=== PATIENT | male | born 1955 | race Caucasian/White ===

== ENCOUNTER → 2017-08-20 | Outpatient (CLI) | payer MEDICARE, OTHER ==
[~2017-08-20] MED LIST: ASPI-496 PO; GABA300C10 PO; METO25TA35 PO; OMNIPAQUE 350 MG/ML, 100ML BOTTLE ONE; ROSU20TA PO
== END | disposition home or self-care (01) ==
LOC: CFH 12:03
PROVIDERS: ATTEND Internal Medicine Gastroenterology
DX: C15.9 Malignant neoplasm of esophagus, unspecified (principal); I70.0 Atherosclerosis of aorta; E04.9 Nontoxic goiter, unspecified; N20.0 Calculus of kidney; K22.8 Other specified diseases of esophagus; N28.1 Cyst of kidney, acquired
CPT/HCPCS: 71260; 74160; Q9967

== ENCOUNTER 2017-09-05 10:49 | Day surgery (SDC) | payer MEDICARE, OTHER ==
[~2017-09-05] VITALS: Ht 172.7 cm; Wt 75.0 kg
[~2017-09-05 10:49] MED LIST changes: +DIPH25CA61 PO; +HYDR12.58 PO; +LOSA50TA6 PO; +OMEG1CAP6 PO; +OMEP40CA6 PO; -OMNIPAQUE 350 MG/ML, 100ML BOTTLE ONE
[2017-09-05] MEDS ORDERED: LACTATED RINGERS 1,000 ML IV SCH (11:30)
[2017-09-05] MEDS ORDERED: CHLORHEXIDINE 15 ML BOTTLE MM SCH (12:30)
[2017-09-05] MEDS ORDERED: PROPOFOL 10 MG/ML, 20ML ONE (13:10)
== END 2017-09-05 15:40 ==
LOC: OUT 10:49
PROVIDERS: ATTEND Internal Medicine Gastroenterology
DX: C15.9 Malignant neoplasm of esophagus, unspecified (principal); K29.70 Gastritis, unspecified, without bleeding; I25.10 Atherosclerotic heart disease of native coronary artery without angina pectoris; G47.33 Obstructive sleep apnea (adult) (pediatric); Z79.82 Long term (current) use of aspirin; Z79.899 Other long term (current) drug therapy; Z95.1 Presence of aortocoronary bypass graft; Z98.890 Other specified postprocedural states; Z98.52 Vasectomy status
CPT/HCPCS: 43237; J2704; J7120

== ENCOUNTER 2017-09-19 11:21 | Day surgery (SDC) | payer MEDICARE, OTHER ==
[2017-09-17 10:59] VITALS: BP 156/95
[~2017-09-19] VITALS: Ht 172.7 cm; Wt 78.1 kg
[2017-09-19] MEDS ORDERED: LACTATED RINGERS 1,000 ML IV SCH (12:04)
[2017-09-19] MEDS ORDERED: HEPARIN 1,000 UNITS/ML, 10ML ONE (14:33)
[2017-09-19] MEDS ORDERED: BUPIVACAINE/PF-EPI 0.5% 1:200K ONE (14:33)
[2017-09-19] MEDS ORDERED: MIDAZOLAM 1 MG/ML, 2ML ONE ×2 (14:47)
[2017-09-19] MEDS ORDERED: FENTANYL PF 100 MCG/2ML ONE (14:47)
[2017-09-19] MEDS ORDERED: LIDOCAINE-MPF 2% ,5ML ONE (14:49)
[2017-09-19] MEDS ORDERED: LIDOCAINE GEL 2%, 5ML ONE (14:49)
[2017-09-19] MEDS ORDERED: PROPOFOL 10 MG/ML, 20ML ONE (14:58)
[2017-09-19] MEDS ORDERED: CEFAZOLIN 1,000 MG ONE ×2 (15:03)
[2017-09-19] MEDS ORDERED: BUPIVACAINE/PF-EPI 0.5% 1:200K INFIL ONE (15:12)
[2017-09-19] MEDS ORDERED: HEPARIN 1,000 UNITS/ML, 10ML IV ONE (15:13)
[2017-09-19] MEDS ORDERED: LABETALOL 5MG/ML, 20ML ONE (15:43)
[2017-09-19] MEDS ORDERED: HYDROmorphone 2 MG/ML, 1ML IV PRN (16:00)
[2017-09-19] MEDS ORDERED: ONDANSETRON 2MG/ML, 2ML IVPush PRN (16:00)
[2017-09-19] MEDS ORDERED: LABETALOL 5MG/ML, 20ML IV PRN ×2 (16:00)
[2017-09-19] MEDS ORDERED: MEPERIDINE/PF 25MG/0.5ML IVPush PRN (16:00)
[2017-09-19] MEDS ORDERED: OXYcodone 5 MG/5 ML ORAL.SOL UDC PO PRN (16:00)
[2017-09-19] MEDS ORDERED: MIDAZOLAM 1 MG/ML, 2ML IV PRN (16:00)
[2017-09-19] MEDS ORDERED: FENTANYL PF 100 MCG/2ML IV PRN (16:00)
[2017-09-19] MEDS ORDERED: IBUPROFEN 600 MG TABLET PO ONE (16:30)
== END 2017-09-19 17:20 ==
LOC: OUT 11:21
PROVIDERS: ATTEND Surgery
DX: C15.5 Malignant neoplasm of lower third of esophagus (principal); E78.5 Hyperlipidemia, unspecified; I10 Essential (primary) hypertension; G47.30 Sleep apnea, unspecified; Z85.46 Personal history of malignant neoplasm of prostate; Z98.890 Other specified postprocedural states; Z98.52 Vasectomy status; Z95.1 Presence of aortocoronary bypass graft; Z79.82 Long term (current) use of aspirin; Z79.899 Other long term (current) drug therapy; Z87.442 Personal history of urinary calculi
CPT/HCPCS: 36561; 71045; 77001; C1788; J0690; J1644; J2250; J2704; J3010; J3490

== ENCOUNTER → 2017-11-13 | Outpatient (CLI) | payer MEDICARE, OTHER ==
[~2017-11-13] MED LIST changes: -LOSA50TA6 PO; +LOSA50TA7 PO; +OMNIPAQUE 350 MG/ML, 100ML BOTTLE ONE
== END | disposition home or self-care (01) ==
LOC: RAD 13:00
PROVIDERS: ATTEND Internal Medicine Hematology & Oncology
DX: K22.8 Other specified diseases of esophagus (principal); K40.90 Unilateral inguinal hernia, without obstruction or gangrene, not specified as recurrent; N20.0 Calculus of kidney; N28.1 Cyst of kidney, acquired; I51.7 Cardiomegaly; C15.5 Malignant neoplasm of lower third of esophagus
CPT/HCPCS: 71260; 74177; Q9967

== ENCOUNTER → 2017-11-15 | Outpatient (CLI) | payer MEDICARE, OTHER ==
[~2017-11-15] MED LIST changes: -OMNIPAQUE 350 MG/ML, 100ML BOTTLE ONE
== END | disposition home or self-care (01) ==
LOC: ROC 07:34
PROVIDERS: ATTEND Radiology Radiation Oncology
DX: C15.5 Malignant neoplasm of lower third of esophagus (principal)
CPT/HCPCS: G0463

== ENCOUNTER → 2017-12-30 | Outpatient (CLI) | payer MEDICARE, OTHER | END | disposition home or self-care (01) | LOC: RAD 09:56 | PROVIDERS: ATTEND Family Medicine | DX: Z01.818 Encounter for other preprocedural examination (principal); I44.7 Left bundle-branch block, unspecified; I21.9 Acute myocardial infarction, unspecified; Z99.89 Dependence on other enabling machines and devices; I25.10 Atherosclerotic heart disease of native coronary artery without angina pectoris; C15.9 Malignant neoplasm of esophagus, unspecified | CPT/HCPCS: 71046; 93005 ==

== ENCOUNTER → 2019-01-05 | Outpatient (CLI) | payer MEDICARE, OTHER ==
[~2019-01-05] MED LIST changes: -HYDR12.58 PO; +HYDROCHLOROTH12.5 MG PO; +LOSA50TA14 PO; -LOSA50TA7 PO; +OMEP40CA42 PO; -OMEP40CA6 PO; +OMNIPAQUE 350 MG/ML, 100ML BOTTLE ONE; -ROSU20TA PO; +ROSU20TA2 PO
== END | disposition home or self-care (01) ==
LOC: CFH 11:14
PROVIDERS: ATTEND Internal Medicine Hematology & Oncology
DX: C15.5 Malignant neoplasm of lower third of esophagus (principal); N28.1 Cyst of kidney, acquired; N20.0 Calculus of kidney; J98.11 Atelectasis; Z85.46 Personal history of malignant neoplasm of prostate
CPT/HCPCS: 71260; 74177; Q9967

== ENCOUNTER → 2019-06-29 | Outpatient (CLI) | payer MEDICARE, OTHER | END | disposition home or self-care (01) | LOC: CFH 10:58 | PROVIDERS: ATTEND Internal Medicine Hematology & Oncology | DX: C15.5 Malignant neoplasm of lower third of esophagus (principal); N28.1 Cyst of kidney, acquired; D72.819 Decreased white blood cell count, unspecified | CPT/HCPCS: 71260; 74177; Q9967 ==

== ENCOUNTER → 2020-01-07 | Outpatient (CLI) | payer MEDICARE, OTHER | END | disposition home or self-care (01) | LOC: CFH 08:53 | PROVIDERS: ATTEND Internal Medicine Hematology & Oncology | DX: C15.5 Malignant neoplasm of lower third of esophagus (principal); J98.4 Other disorders of lung; K43.6 Other and unspecified ventral hernia with obstruction, without gangrene; I70.0 Atherosclerosis of aorta | CPT/HCPCS: 71260; 74177; Q9967 ==

== ENCOUNTER 2020-02-03 07:30 | Day surgery (SDC) | payer MEDICARE, OTHER ==
[~2020-02-03] VITALS: Ht 172.7 cm; Wt 69.0 kg
[~2020-02-03 07:30] MED LIST changes: -OMNIPAQUE 350 MG/ML, 100ML BOTTLE ONE
[2020-02-03 08:56] VITALS: BP 105/72
[2020-02-03] MEDS ORDERED: SODIUM CHLORIDE 0.9% 1,000 ML IV SCH (09:00)
[2020-02-03] MEDS ORDERED: FLUMAZENIL 0.1 MG/1 ML, 5ML ONE (09:06)
[2020-02-03] MEDS ORDERED: NALOXONE 1 MG/ML, 2ML ONE (09:06)
[2020-02-03] MEDS ORDERED: MIDAZOLAM 1 MG/ML, 5ML ONE (09:06)
[2020-02-03] MEDS ORDERED: FENTANYL PF 100 MCG/2ML ONE ×2 (09:06)
[2020-02-03] MEDS ORDERED: LIDOCAINE 1%, 10ML ONE (09:07)
== END 2020-02-03 10:30 | disposition home or self-care (01) ==
LOC: OUT 07:30 → EDSTATUS 09:30 → OUT 10:30
PROVIDERS: ATTEND Internal Medicine Hematology & Oncology
DX: R93.89 Abnormal findings on diagnostic imaging of other specified body structures (principal); C15.5 Malignant neoplasm of lower third of esophagus; G60.0 Hereditary motor and sensory neuropathy; I10 Essential (primary) hypertension; I25.10 Atherosclerotic heart disease of native coronary artery without angina pectoris; Z79.899 Other long term (current) drug therapy; Z85.46 Personal history of malignant neoplasm of prostate; Z95.5 Presence of coronary angioplasty implant and graft
CPT/HCPCS: 20206; 76942; J3010; J7030; J2250; J2310

== ENCOUNTER → 2020-02-10 | Outpatient (CLI) | payer MEDICARE, OTHER ==
[~2020-02-10] MED LIST changes: +OMNIPAQUE 350 MG/ML, 75ML BOTTLE ONE
[2020-02-10 16:29] LABS: CREATININE 1.09 mg/dL (0.7-1.3)
== END | disposition home or self-care (01) ==
LOC: RAD 15:37
PROVIDERS: ATTEND Internal Medicine
DX: R91.8 Other nonspecific abnormal finding of lung field (principal)
CPT/HCPCS: 36415; 71260; 82565; Q9967

== ENCOUNTER → 2020-02-22 | Outpatient (CLI) | payer MEDICARE, OTHER ==
[~2020-02-22] MED LIST changes: +LOSA25TA25 PO; +MULT-449 PO; -OMNIPAQUE 350 MG/ML, 75ML BOTTLE ONE; +TRAZ50TA66 PO
[2020-02-22 11:22] LABS: ALBUMIN 3.5 g/dL (3.4-5.0); ANION GAP 3 mmol/L (5-15); CALCIUM 9.8 mg/dL (8.5-10.1); CHLORIDE 107 mmol/L (98-107)
[2020-02-22 11:24] LABS: ALANINE AMINOTRANSFERASE 61 U/L (12-78); ALKALINE PHOSPHATASE 97 U/L (45-117); BILIRUBIN,TOTAL 0.4 mg/dL (0.2-1.0); CREATININE 0.93 mg/dL (0.7-1.3); TOTAL PROTEIN 6.8 g/dL (6.4-8.2)
== END | disposition home or self-care (01) ==
LOC: STAR 09:44
PROVIDERS: ATTEND Internal Medicine
DX: Z01.818 Encounter for other preprocedural examination (principal); R91.8 Other nonspecific abnormal finding of lung field; Z20.828 Contact with and (suspected) exposure to other viral communicable diseases
CPT/HCPCS: 80053; 87635; 93005

== ENCOUNTER 2020-02-26 08:28 | Day surgery (SDC) | payer MEDICARE, OTHER ==
[~2020-02-26] VITALS: Ht 172.7 cm; Wt 70.1 kg
[2020-02-26 09:07] VITALS: BP 107/70
[2020-02-26] MEDS ORDERED: CHLORHEXIDINE 15 ML UDC MM ONE (09:30)
[2020-02-26] MEDS ORDERED: LACTATED RINGERS 1,000 ML IV SCH (10:00)
[2020-02-26] MEDS ORDERED: ONDANSETRON 2MG/ML, 2ML ONE (11:54)
[2020-02-26] MEDS ORDERED: EPHEDRINE 50 MG/ML, 1ML ONE (11:54)
[2020-02-26] MEDS ORDERED: DEXAMETHASONE 4 MG/ML, 1ML ONE (11:54)
[2020-02-26] MEDS ORDERED: PHENYLEPHRINE 10 MG/ML ONE (11:54)
[2020-02-26] MEDS ORDERED: PROPOFOL 10 MG/ML, 20ML ONE (11:54)
[2020-02-26] MEDS ORDERED: MIDAZOLAM 1 MG/ML, 2ML ONE (11:54)
[2020-02-26] MEDS ORDERED: REMIFENTANIL 2 MG ONE (12:15)
[2020-02-26] MEDS ORDERED: PROMETHAZINE 25 MG/ML, 1ML IV PRN (12:30)
[2020-02-26] MEDS ORDERED: ACETAMINOPHEN 325 MG TABLET PO PRN (12:30)
[2020-02-26] MEDS ORDERED: KETOROLAC 30 MG/1 ML IV PRN (12:30)
[2020-02-26] MEDS ORDERED: HYDROmorphone 1 MG/ML, 1ML INJ IVPush PRN (12:30)
[2020-02-26] MEDS ORDERED: hydrALAzine 20 MG/ML, 1ML IV PRN (12:30)
[2020-02-26] MEDS ORDERED: OXYcodone 5 MG/5 ML ORAL.SOL UDC PO PRN (12:30)
[2020-02-26] MEDS ORDERED: FENTANYL PF 100 MCG/2ML IV PRN (12:30)
[2020-02-26] MEDS ORDERED: ALBUTEROL SULFATE 2.5 MG/3 ML NPPB PRN (12:30)
[2020-02-26] MEDS ORDERED: DIAZEPAM 5 MG/ML, 2ML IVPush PRN (12:30)
[2020-02-26] MEDS ORDERED: LABETALOL 5MG/ML, 20ML IV PRN (12:30)
[2020-02-26] MEDS ORDERED: MEPERIDINE/PF 25MG/0.5ML IVPush PRN (12:30)
== END 2020-02-26 15:00 | disposition home or self-care (01) ==
LOC: OUT 08:28
PROVIDERS: ATTEND Internal Medicine
DX: R91.8 Other nonspecific abnormal finding of lung field (principal); G47.33 Obstructive sleep apnea (adult) (pediatric); G60.0 Hereditary motor and sensory neuropathy; I10 Essential (primary) hypertension; I25.10 Atherosclerotic heart disease of native coronary artery without angina pectoris; C16.0 Malignant neoplasm of cardia; Z79.82 Long term (current) use of aspirin; Z79.899 Other long term (current) drug therapy; Z85.46 Personal history of malignant neoplasm of prostate; Z92.21 Personal history of antineoplastic chemotherapy; Z92.3 Personal history of irradiation; Z95.1 Presence of aortocoronary bypass graft
CPT/HCPCS: 31652; 88172; 88173; 88177; 88305; J1100; J2250; J2370; J2405; J2704; J3010; J7120; 31629

== ENCOUNTER → 2020-06-07 | Outpatient (CLI) | payer MEDICARE, OTHER | END | disposition home or self-care (01) | LOC: CFH 11:57 | PROVIDERS: ATTEND Internal Medicine Hematology & Oncology | DX: Z51.11 Encounter for antineoplastic chemotherapy (principal); C15.5 Malignant neoplasm of lower third of esophagus; R22.1 Localized swelling, mass and lump, neck; I82.C11 Acute embolism and thrombosis of right internal jugular vein; D70.8 Other neutropenia; D70.1 Agranulocytosis secondary to cancer chemotherapy; Z85.46 Personal history of malignant neoplasm of prostate; Z79.899 Other long term (current) drug therapy | CPT/HCPCS: 76536 ==

== ENCOUNTER 2020-06-17 10:40 | Day surgery (SDC) | payer MEDICARE, OTHER ==
[2020-06-14 13:03] LABS: ALBUMIN 3.4 g/dL (3.4-5.0); ANION GAP 3 mmol/L (5-15); CALCIUM 9.5 mg/dL (8.5-10.1); CHLORIDE 106 mmol/L (98-107)
[2020-06-14 13:07] LABS: ALANINE AMINOTRANSFERASE 29 U/L (12-78); ALKALINE PHOSPHATASE 101 U/L (45-117); BILIRUBIN,TOTAL 0.4 mg/dL (0.2-1.0); CREATININE 0.98 mg/dL (0.7-1.3); TOTAL PROTEIN 6.6 g/dL (6.4-8.2)
[~2020-06-17] VITALS: Ht 172.7 cm; Wt 71.5 kg
[~2020-06-17 10:40] MED LIST changes: +APIX5TAB PO; +FINA1TAB16 PO; +METO-93 PO; +REMIFENTANIL 1 MG ONE
[2020-06-17] MEDS ORDERED: HYDROCHLOROTH12.5 MG PO (11:06)
[2020-06-17 11:11] VITALS: BP 121/78
[2020-06-17] MEDS ORDERED: CHLORHEXIDINE 15 ML UDC PO ONE (11:30)
[2020-06-17] MEDS ORDERED: LACTATED RINGERS 1,000 ML IV SCH (11:30)
[2020-06-17] MEDS ORDERED: FENTANYL PF 100 MCG/2ML ONE (11:43)
[2020-06-17] MEDS ORDERED: DIPHENHYDRAMINE 50 MG/ML, 1ML IVPush PRN (12:00)
[2020-06-17] MEDS ORDERED: METOCLOPRAMIDE 5 MG/ML, 2ML IVPush PRN (12:00)
[2020-06-17] MEDS ORDERED: LABETALOL 5MG/ML, 20ML IV PRN (12:00)
[2020-06-17] MEDS ORDERED: METOPROLOL 1 MG/ML, 5ML IV PRN (12:00)
[2020-06-17] MEDS ORDERED: EPHEDRINE 50 MG/ML, 1ML IVPush PRN (12:00)
[2020-06-17] MEDS ORDERED: ALBUTEROL SULFATE 2.5 MG/3 ML NPPB PRN (12:00)
[2020-06-17] MEDS ORDERED: ALBUTEROL/IPRATROPIUM 2.5MG/0.5MG, 3 ML NPPB PRN (12:00)
[2020-06-17] MEDS ORDERED: HALOPERIDOL 5 MG/ML IV PRN (12:00)
[2020-06-17] MEDS ORDERED: ACETAMINOPHEN 325 MG TABLET PO PRN (12:00)
[2020-06-17] MEDS ORDERED: ONDANSETRON 2MG/ML, 2ML IVPush PRN (12:00)
[2020-06-17] MEDS ORDERED: KETOROLAC 30 MG/1 ML IV PRN (12:00)
[2020-06-17] MEDS ORDERED: FENTANYL PF 100 MCG/2ML IV PRN (12:00)
[2020-06-17] MEDS ORDERED: PROMETHAZINE 25 MG/ML, 1ML IVPush PRN (12:00)
[2020-06-17] MEDS ORDERED: OXYcodone 5 MG/5 ML ORAL.SOL UDC PO PRN (12:00)
[2020-06-17] MEDS ORDERED: HYDROmorphone 1 MG/ML, 1ML INJ IVPush PRN (12:00)
[2020-06-17] MEDS ORDERED: hydrALAzine 20 MG/ML, 1ML IV PRN (12:00)
== END 2020-06-17 16:00 | disposition home or self-care (01) ==
LOC: OUT 10:40
PROVIDERS: ATTEND Internal Medicine
DX: R91.8 Other nonspecific abnormal finding of lung field (principal); C77.1 Secondary and unspecified malignant neoplasm of intrathoracic lymph nodes; G60.0 Hereditary motor and sensory neuropathy; I25.10 Atherosclerotic heart disease of native coronary artery without angina pectoris; I25.2 Old myocardial infarction; I10 Essential (primary) hypertension; G47.33 Obstructive sleep apnea (adult) (pediatric); Z20.822 Contact with and (suspected) exposure to COVID-19; Z79.82 Long term (current) use of aspirin; Z79.899 Other long term (current) drug therapy; Z85.01 Personal history of malignant neoplasm of esophagus; Z85.46 Personal history of malignant neoplasm of prostate; Z90.49 Acquired absence of other specified parts of digestive tract; Z95.1 Presence of aortocoronary bypass graft; Z98.1 Arthrodesis status; Z98.890 Other specified postprocedural states
CPT/HCPCS: 31652; 36415; 80053; 88172; 88173; 88177; 88305; 93005; J3010; J7120; U0003

== ENCOUNTER 2020-06-29 07:22 | Day surgery (SDC) | payer MEDICARE, OTHER ==
[~2020-06-29] VITALS: Ht 172.7 cm; Wt 70.4 kg
[~2020-06-29 07:22] MED LIST changes: -REMIFENTANIL 1 MG ONE
[2020-06-29] MEDS ORDERED: LIDOCAINE 1%, 20ML ONE (07:52)
[2020-06-29] MEDS ORDERED: LIDOCAINE 1%, 10ML ONE (07:52)
[2020-06-29 08:21] VITALS: BP 106/74
[2020-06-29] MEDS ORDERED: CEFAZOLIN PMX 1GM/50ML 50 ML IV ONE (08:30)
[2020-06-29] MEDS ORDERED: SODIUM CHLORIDE 0.9% 1,000 ML IV SCH (08:30)
[2020-06-29] MEDS ORDERED: MIDAZOLAM 1 MG/ML, 5ML ONE ×2 (09:05)
[2020-06-29] MEDS ORDERED: NALOXONE 1 MG/ML, 2ML ONE (09:05)
[2020-06-29] MEDS ORDERED: FENTANYL PF 100 MCG/2ML ONE ×2 (09:05)
[2020-06-29] MEDS ORDERED: FLUMAZENIL 0.1 MG/1 ML, 5ML ONE (09:05)
== END 2020-06-29 13:35 | disposition home or self-care (01) ==
LOC: OUT 07:22
PROVIDERS: ATTEND Internal Medicine Hematology & Oncology
DX: C15.5 Malignant neoplasm of lower third of esophagus (principal); G60.0 Hereditary motor and sensory neuropathy; I10 Essential (primary) hypertension; Z85.46 Personal history of malignant neoplasm of prostate; Z95.1 Presence of aortocoronary bypass graft; Z98.1 Arthrodesis status
CPT/HCPCS: 36561; 76937; 77001; 99156; 99157; C1769; C1788; C1894; J0690; J1642; J2250; J3010; J7030; J2310

== ENCOUNTER 2020-10-14 08:59 | Outpatient (CLI) | payer MEDICARE, OTHER ==
[~2020-10-14 08:59] MED LIST changes: -OMEP40CA42 PO; +OMEP40CA8 PO
== END 2020-10-14 23:59 | disposition home or self-care (01) ==
LOC: ROC 08:59
PROVIDERS: ATTEND Radiology Radiation Oncology
DX: Z08 Encounter for follow-up examination after completed treatment for malignant neoplasm (principal); Z85.01 Personal history of malignant neoplasm of esophagus
CPT/HCPCS: G0463